=== PATIENT | male | born 1950 | race Caucasian/White ===

== ENCOUNTER 2017-03-14 07:39 | Day surgery (SDC) | payer BC ==
[2017-03-14 08:29] VITALS: BMI 30.7
[2017-03-14] MEDS ORDERED: LIDOCAINE HCL/PF 1% SDV 5ML VIAL ONE (08:42)
[2017-03-14] MEDS ORDERED: PROPOFOL 20 ML ONE ×3 (08:42)
[2017-03-14 09:50] VITALS: TEMP 97.9
[2017-03-14 13:37] VITALS: BP 109/69; PULSE 57
--- NOTE | 2017-03-15 13:10 | PATH ---
Surgical Pathology Report Patient Name: DRAGAN MICHEL [facility]. Rec. #: [id number] /Age/Gender: 1950 (Age: 66) / M Account: [id number] Location: [facility]SU-ENDOSCOPY Taken: 03/14/2017 Received: 03/14/2017 Reported: 03/15/2017 Physicians: Manjit Majano M.D. Specimen(s) Received A: BX DUODENUM B: BX ANTRUM C: BX GE JUNCTION D: DISTAL TRANSVERSE COLON POLYP Clinical History Preoperative diagnosis: Coppola's and adenoma surveillance Postoperative diagnosis: GERD with Coppola's segment, Coppola's, hiatal hernia, colon polyp Final Diagnosis A. DUODENUM, SECOND PORTION AND BULB, BIOPSY: DUODENAL MUCOSA WITHOUT SIGNIFICANT PATHOLOGIC FINDINGS. B. STOMACH, ANTRUM, BIOPSY: GASTRIC ANTRAL MUCOSA WITH MINIMAL CHRONIC INFLAMMATION. IMMUNOHISTOCHEMICAL STAIN FOR H. PYLORI IS NEGATIVE. C. GASTROESOPHAGEAL (GE) JUNCTION, BIOPSY: SQUAMOCOLUMNAR MUCOSA WITH MILD CHRONIC INFLAMMATION AND CHANGES OF MILD REFLUX ESOPHAGITIS. NO INTESTINAL METAPLASIA OR DYSPLASIA IDENTIFIED. D. DISTAL TRANSVERSE COLON, POLYP, BIOPSY: TUBULAR ADENOMA. Electronically Signed Deysi Lawson M.D. Gross Description A. Received in formalin, labeled "biopsy second portion of duodenum and bulb" are 3 dillard, irregular portions of soft tissue ranging from 0.3-0.5 cm. in greatest dimension. The specimens are submitted in toto in one cassette. B. Received in formalin, labeled "biopsy antrum" are 2 dillard, irregular portions of soft tissue measuring 0.2 and 0.4 cm. in greatest dimension. The specimens are submitted in toto in one cassette. C. Received in formalin, labeled "biopsy GE junction" are 5 dillard, irregular portions of soft tissue ranging from 0.2-0.5 cm. in greatest dimension. The specimens are submitted in toto in one cassette. D. Received in formalin, labeled "biopsy distal transverse colon polyp" is a dillard, irregular portion of soft tissue measuring 0.4 cm. in greatest dimension. The specimen is submitted in toto in one cassette. 03/14/201703/14/2017
== END 2017-03-14 10:45 | disposition home or self-care (01) ==
LOC: JASU-ENDO 07:39
PROVIDERS: ATTEND Internal Medicine Gastroenterology
PROC: 0DB98ZX Excision of Duodenum, Via Natural or Artificial Opening Endoscopic, Diagnostic (ICD-10-PCS; 2017-03-14)
PROC: 0DB68ZX Excision of Stomach, Via Natural or Artificial Opening Endoscopic, Diagnostic (ICD-10-PCS; 2017-03-14)
PROC: 0DB38ZX Excision of Lower Esophagus, Via Natural or Artificial Opening Endoscopic, Diagnostic (ICD-10-PCS; 2017-03-14)
PROC: 0DBL8ZX Excision of Transverse Colon, Via Natural or Artificial Opening Endoscopic, Diagnostic (ICD-10-PCS; principal; 2017-03-14 09:00)
DX: Z86.010 Personal history of colon polyps (principal); K57.30 Diverticulosis of large intestine without perforation or abscess without bleeding; K64.8 Other hemorrhoids; D12.3 Benign neoplasm of transverse colon; K21.9 Gastro-esophageal reflux disease without esophagitis; K44.9 Diaphragmatic hernia without obstruction or gangrene; K22.70 Barrett's esophagus without dysplasia
CPT/HCPCS: 88305-TC; 88342-TC

== ENCOUNTER 2017-08-22 06:01 | Day surgery (SDC) | payer BC ==
[2017-08-21 18:17] VITALS: BMI 30.7
--- NOTE | 2017-08-21 18:17 | PREOP ---
DATE OF ADMISSION: 08/22/2017 ADMISSION DIAGNOSIS: Chronic pansinusitis with nasal polyposis and anosmia. HISTORY OF PRESENT ILLNESS: This 67-year-old gentleman has had longstanding nasal and sinus problems. He has lost his sense of smell. He has undergone sinus surgery in the past with good results. His most recent surgery was in 2008. Recently he has developed recurrence of his significant nasal obstruction as well as poor sense of smell. Examination demonstrates marked nasal polyposis with significant obstruction. His CT scan shows chronic pansinusitis with obstruction. He is now brought to surgery for treatment. PAST MEDICAL HISTORY: Primary medical doctor is Dr. Shasta Browning. His past history is significant for right kidney cancer for which he had a partial nephrectomy in 2007. He also has hypothyroidism, hypertension, high cholesterol. He has had a previous appendectomy in 1993. He has undergone general anesthesia without reported problems. He also had his gallbladder removed. BLEEDING HISTORY: Negative. FAMILY HISTORY: Negative for bleeding or anesthesia problems. ALLERGIES: Patient has no allergies to medications. MEDICATIONS: His present medications include Diovan 40 mg, Synthroid, and baby aspirin for which he is holding. PHYSICAL EXAMINATION: General: The patient is a well-developed male, in no distress. HEENT: Head is normal. Eyes are clear. Ears are unremarkable. The voice is hyponasal. The throat is unremarkable. The nose has marked bilateral nasal polyps with significant obstruction. The remainder of his head and neck examination is unremarkable. CT scan of the paranasal sinuses performed at [facility] in June 2017 shows marked chronic pansinusitis with total opacification of the frontal and ethmoid sinuses and near opacification of the maxillary sinuses. There is also partial opacification of the left sphenoid sinus and total opacification of the right sphenoid sinus. There is obstruction of the ostiomeatal units as well as frontoethmoid recesses and sphenoethmoid recesses bilaterally. There are large polyps seen on both sides. There is deviation of the septum. Bones show no evidence of focal bone destruction. IMPRESSION: Chronic pansinusitis with nasal polyposis and anosmia. PLAN: Bilateral endoscopic sinus surgery to adjust ethmoid, maxillary, frontal, and sphenoid sinuses with image guidance. INFORMED CONSENT: Patient understands the indications, alternatives, nature, risks of proposed surgery. Potential complications including but not limited to anesthesia, bleeding, infection, recurrence, numbness, hole in the septum, reduced smell sense, and eye injury or brain injury were discussed in detail. He understands and accepts these risks and wished to proceed with surgery. Questions were answered fully. THERON ORONA M.D. RUBIO/[id number]
[2017-08-22] MEDS ORDERED: COCAINE HCL 4% TOPICAL SOLUTION 4 ML BOTTLE TP ONE ×2 (07:27→08:25)
[2017-08-22] MEDS ORDERED: LIDOCAINE 1%/EPI 1:100000 (20 ML MULTI DOSE VIAL) ONE ×2 (07:35→08:40)
--- NOTE | 2017-08-22 07:51 | HP ---
History & Physical Update - History History: No Change - Physical Physical: No Change - Assessment Assessment: No Change - Plan Plan: No Change
[2017-08-22] MEDS ORDERED: LIDOCAINE HCL/PF 2% SDV 5ML VIAL ONE (08:01)
[2017-08-22] MEDS ORDERED: MIDAZOLAM HCL 2 MG/2 ML SINGLE DOSE VIAL ONE (08:01)
[2017-08-22] MEDS ORDERED: fentaNYL CITRATE 250 MCG/5 ML VIAL ONE (08:01)
[2017-08-22] MEDS ORDERED: ROCURONIUM BROMIDE 50 MG/5 ML VIAL ONE (08:01)
[2017-08-22] MEDS ORDERED: PROPOFOL 20 ML ONE ×2 (08:01)
[2017-08-22] MEDS ORDERED: DEXAMETHASONE SOD PHOSPHATE 4 MG/1 ML VIAL ONE (08:20)
[2017-08-22] MEDS ORDERED: LIDOCAINE 1%/EPI 1:100000 (50 ML MULTI DOSE VIAL) INF ONE ×2 (08:36)
[2017-08-22] MEDS ORDERED: GLYCOPYRROLATE 0.2 MG/1 ML VIAL ONE (08:52)
[2017-08-22] MEDS ORDERED: NEOSTIGMINE METHYLSULFATE 0.5 MG/ML - 10 ML MDV ONE (08:52)
[2017-08-22] MEDS ORDERED: ePHEDrine SULFATE 50 MG/1 ML AMPULE ONE (08:59)
[2017-08-22] MEDS ORDERED: SODIUM CHLORIDE 0.9% P/F 10 ML VIAL IJ ONE (09:00)
--- NOTE | 2017-08-22 10:00 | OP ---
Operative Note - Note: Operative Date: 08/22/17 Pre-Operative Diagnosis: chronic pansinusitis with polyposis and anosmia Operation: bilateral endoscopic ethmoidectomy, anterior/posterior, bilateral endoscopic maxillary antrostomy with removal of tissue, bilateral endoscopic frontal sinus exploration, bilateral endoscopic sphenoidotomy, image guidance Findings: chronic polypoid sinusitis, obstruction of all sinuses Implants: none Post-Operative Diagnosis: Same as Pre-op Surgeon: Andi Hayes Anesthesiologist/MAIL FORWARDING SYSTEM MARKUP CLERK: Virginia Lucas Anesthesia: General Specimens Removed: right and left nasal polyps and ethmoid tissue, right and left maxillary sinus tissue Estimated Blood Loss (mls): 30 Blood Volume Replaced (mls): 0 Operative Report Dictated: Yes
[2017-08-22] MEDS ORDERED: ACETAMINOPHEN 325 MG TABLET (FP) PO PRN (10:11)
[2017-08-22] MEDS ORDERED: oxyCODONE HCL 5 MG TABLET PO PRN (10:11)
[2017-08-22] MEDS ORDERED: IBUPROFEN 800 MG/8 ML IJ IVPB PRN (10:16)
[2017-08-22] MEDS ORDERED: ONDANSETRON 4 MG/2 ML VIAL IVPUSH PRN (10:16)
[2017-08-22] MEDS ORDERED: LACTATED RINGERS SOLUTION 1,000 ML IV SCH (10:30)
[2017-08-22] MEDS ORDERED: IBUPROFEN 800 MG/8 ML IJ IVPB ONE (10:37)
[2017-08-22 12:41] VITALS: TEMP 97.8
[2017-08-22 14:55] VITALS: BP 107/62; PULSE 64
--- NOTE | 2017-08-23 18:54 | OP ---
DATE OF OPERATION: 08/22/2017 PREOPERATIVE DIAGNOSIS: Chronic pansinusitis with polyposis and anosmia. POSTOPERATIVE DIAGNOSIS: Chronic pansinusitis with polyposis and anosmia. PROCEDURE: 1. Bilateral endoscopic ethmoidectomy, anterior and posterior. 2. Bilateral endoscopic maxillary antrostomy with removal of tissue. 3. Bilateral endoscopic frontal sinus exploration. 4. Bilateral endoscopic sphenoidotomy. 5. Image guidance. SURGEON: Andi Hayes M.D. ANESTHESIOLOGIST: Virginia Lucas M.D. ANESTHESIA: General via endotracheal tube. INDICATION: This 67-year-old gentleman has a longstanding recurrent sinusitis. He had undergone previous surgery and did well. However, he has developed recurrence and is now very symptomatic with obstruction pressure, drainage, and anosmia. Examination demonstrates significant bilateral polyposis. CT scan demonstrates opacification and chronic pansinusitis, and he is now brought to surgery for treatment. FINDINGS: Chronic pansinusitis and polyposis. PROCEDURE: Patient was brought to the operating room and placed on the operating table in supine position. General endotracheal anesthesia was induced to satisfactory level. He was prepped and draped in the usual fashion for surgery. Cocaine 4% was placed topically within the nasal cavities. The CT scan data was loaded into the [employer] image guidance system. Patient was registered and the image guidance used intermittently throughout the case in order to identify anatomic location and guide dissection. The pledgets removed. Nasal endoscopy was performed with 0 degree telescope. Significant bilateral polyps were found from anterior to posterior. Largest polyps were injected. Additional cocaine 4% was placed in the region of the middle meatus. The left paranasal sinus was first addressed. Accessible polyps were removed with the biting forceps. There was a middle turbinate remnant identified. I swept with the Xomed microdebrider with guidance then used. Anterior and posterior ethmoidectomy was performed. The lamina papyracea and the fovea ethmoidalis were preserved. The region of sphenoid sinus was approached and was obstructed with polyps. This was carefully removed with the debrider and forceps. The sphenoid sinus was entered and no significant abnormal tissue was identified. Next, the left maxillary sinus is addressed. Tissue is seen swelling out of the antrostomy, significant polyps as well as the cyst were identified, as well as mucopus, and this was all removed with the 70-degree scope and the giraffe forceps. All accessible tissue was removed. Finally on the left side, the left frontal sinuses addressed with the 70-degree scope and giraffe forceps. Significant polypoid tissue was removed. The ostium was then exposed and confirmed on the navigation system. Attention was then turned to the right paranasal sinuses. Pledgets removed. The largest polyps were removed with forceps and then microdebrider dissection was performed for anterior and posterior ethmoidectomy. Again, the lamina papyracea and the fovea ethmoidalis were preserved. More posteriorly, a supersphenoid cell was identified. Dissection was brought more inferiorly, and the sphenoid ostium identified and opened with a microdebrider. Next, attention was turned toward the right maxillary sinus. All tissues were removed from the anterior portion of the sinus. More posteriorly, there were some polypoid changes in the mucosa, but no irreversible lesions. Finally, the right frontal sinus was addressed, polyposis was removed. The frontal ethmoid recess was dissected, and the frontal ostium was exposed and its location confirmed on the navigation system. Final inspection demonstrated open frontal recesses. The sphenoid and maxillary sinuses were open as well as the ethmoid sinuses. Hemostasis was achieved with spot electrocauterization from some areas of oozing. Nasopore dressing was placed bilaterally. Additional Telfa packing was placed in the inferior nasal cavities. Patient tolerated procedure well. He was then awakened from general anesthesia, transferred to PACU in stable condition. Estimated blood loss was 30 mL. He received crystalloid during the procedure. Specimens were sent to pathology including right and left middle turbinate ethmoid tissue, and right and left maxillary sinus tissue. There were no complications. ANDI HAYES M.D. RUBIO/[id number]
--- NOTE | 2017-08-27 16:13 | PATH ---
Surgical Pathology Report Patient Name: DRAGAN MICHEL [facility]. Rec. #: [id number] /Age/Gender: 1950 (Age: 67) / M Account: [id number] Location: [facility] SURGICAL Taken: 08/22/2017 Received: 08/22/2017 Reported: 08/27/2017 Physicians: Andi Hayes M.D. Specimen(s) Received A: LEFT NASAL POLYP AND ETHMOID TISSUE B: LEFT MAXILLARY SINUS C: RIGHT AND LEFT ETHMOID TISSUE D: RIGHT NASAL POLYP AND ETHMOID TISSUE E: RIGHT MAXILLARY SINUS Clinical History The Chronic sinusitis Final Diagnosis A. LEFT NASAL POLYPS AND ETHMOID TISSUE: NASAL POLYPS. SEPARATE FRAGMENT OF BENIGN RESPIRATORY MUCOSA. B. LEFT MAXILLARY SINUS: FRAGMENTS OF POLYPOID TISSUE LINED BY RESPIRATORY MUCOSA. SEPARATE FRAGMENT OF BENIGN RESPIRATORY MUCOSA WITH PLASMA CELLS, LYMPHOCYTIC AND FEW EOSINOPHILIC INFILTRATE. C. RIGHT AND LEFT ETHMOID TISSUE: CHRONIC SINUSITIS WITH INCREASED EOSINOPHILS INFILTRATE AND BENIGN OSSEOUS TISSUE. D. RIGHT NASAL POLYP AND ETHMOID TISSUE: NASAL POLYPS. SEPARATE FRAGMENT OF BENIGN RESPIRATORY MUCOSA WITH CHRONIC INFLAMMATION. E. RIGHT MAXILLARY SINUS: FRAGMENTS OF POLYPOID TISSUE LINED BY RESPIRATORY MUCOSA. SEPARATE FRAGMENT OF BENIGN RESPIRATORY MUCOSA WITH PLASMA CELLS, LYMPHOCYTIC AND FEW EOSINOPHILIC INFILTRATE. Comment: PAS stain done on sections from block 1C and 1E failed to reveal fungal hyphae. Electronically Signed Dean Estevez M.D. Gross Description A. Received in formalin labeled "left nasal polyp and ethmoid tissue" are multiple fragments of pink-dillard soft tissue measuring 4 x 4 x 0.3 cm in aggregate. The largest polypoid fragment measures 2 x 1.5 cm. The entire specimen is submitted in one cassette. B. Received in formalin labeled "left maxillary sinus" are multiple fragments of pink-dillard focally hemorrhagic soft tissue measuring 2.5 x 2 x 0.3 cm in aggregate. The entire specimen is submitted in one cassette. C. Received in formalin labeled "right and left ethmoid tissue" are multiple fragments of pink-dillard focally hemorrhagic soft tissue measuring 4 x 3 x 0.5 cm in aggregate. Lay Out Former sections are submitted in one cassette. D. Received in formalin labeled "right nasal polyp and ethmoid tissue" are multiple fragments of pink-dillard polypoid to mucoid soft tissue measuring 3 x 1 x 0.5 cm in aggregate. The entire specimen is submitted in one cassette. E. Received in formalin labeled "right maxillary sinus" are multiple fragments of pink-dillard polypoid to mucoid soft tissue measuring 3 x 2 x 1 cm in aggregate. The entire specimen is submitted in one cassette. ZENA08/22/2017 [email or web address]/22/2017
== END 2017-08-22 14:00 | disposition home or self-care (01) ==
LOC: JASU-SURG 06:01
PROVIDERS: ATTEND Otolaryngology
PROC: 09BU4ZZ Excision of Right Ethmoid Sinus, Percutaneous Endoscopic Approach (ICD-10-PCS; 2017-08-22)
PROC: 09BV4ZZ Excision of Left Ethmoid Sinus, Percutaneous Endoscopic Approach (ICD-10-PCS; principal; 2017-08-22 08:00)
DX: J32.4 Chronic pansinusitis (principal); J33.9 Nasal polyp, unspecified; R43.0 Anosmia; I10 Essential (primary) hypertension; E03.9 Hypothyroidism, unspecified; E78.00 Pure hypercholesterolemia, unspecified; Z85.528 Personal history of other malignant neoplasm of kidney
CPT/HCPCS: 88304-TC; 94760

== ENCOUNTER 2023-08-03 04:36 | Day surgery (SDC) | payer OTHER, MEDICARE ==
[2023-08-01 16:37] VITALS: BMI 25.8
[2023-08-03] MEDS ORDERED: FENTANYL CITRATE/PF 50 MCG/ML VIAL ONE (09:36)
[2023-08-03 10:56] VITALS: RESP 18; TEMP 98.7
[2023-08-03 11:31] VITALS: BP 139/71; PULSE 45
== END 2023-08-03 11:35 | disposition home or self-care (01) ==
LOC: JASU-ENDO 04:36
PROVIDERS: ATTEND Internal Medicine Gastroenterology
PROC: 0DBP8ZX Excision of Rectum, Via Natural or Artificial Opening Endoscopic, Diagnostic (ICD-10-PCS; 2023-08-03)
PROC: 0DB68ZX Excision of Stomach, Via Natural or Artificial Opening Endoscopic, Diagnostic (ICD-10-PCS; 2023-08-03)
PROC: 0DB98ZX Excision of Duodenum, Via Natural or Artificial Opening Endoscopic, Diagnostic (ICD-10-PCS; 2023-08-03)
PROC: 0DBH8ZX Excision of Cecum, Via Natural or Artificial Opening Endoscopic, Diagnostic (ICD-10-PCS; principal; 2023-08-03 10:00)
DX: Z12.11 Encounter for screening for malignant neoplasm of colon (principal); D12.0 Benign neoplasm of cecum; D12.8 Benign neoplasm of rectum; K64.8 Other hemorrhoids; K57.30 Diverticulosis of large intestine without perforation or abscess without bleeding; Z86.010 Personal history of colon polyps; K21.00 Gastro-esophageal reflux disease with esophagitis, without bleeding; K44.9 Diaphragmatic hernia without obstruction or gangrene; K29.50 Unspecified chronic gastritis without bleeding; K31.7 Polyp of stomach and duodenum; I10 Essential (primary) hypertension
CPT/HCPCS: 82962; 88305-TC; 88342-TC